=== PATIENT | female | born 1970 | race African-American/Black ===

== ENCOUNTER 2023-06-21 10:28 | Emergency (ER) | payer BC ==
[2023-06-21 10:37] VITALS: RESP 18; TEMP 97; BMI 25.7
[2023-06-21 12:10] LABS: EPI CELLS 3 /uL (0-25.1); HYALINE CASTS 1 /uL (0-3.1); URINE APPEARANCE CLEAR; URINE BACTERIA 3 /uL (0-1359); URINE BILIRUBIN NEGATIVE (NEGATIVE); URINE COLOR YELLOW; URINE GLUCOSE (UA) NEGATIVE (NEGATIVE); URINE KETONE NEGATIVE (NEGATIVE); URINE LEUK ESTERASE NEGATIVE (NEGATIVE); URINE NITRITE NEGATIVE (NEGATIVE); URINE PROTEIN NEGATIVE (NEGATIVE); URINE RBC 64 /uL (0-23.9); URINE UROBILINOGEN 0.2 mg/dL (0.2-1.0); URINE WBC 3 /uL (0-25.8)
[2023-06-21 12:27] LABS: BASO % 0.2 % (0-2.0); HEMATOCRIT 34.9 % (32.4-45.2); LYMPH % 5.7 % (8-40); MCH 31.5 pg (25.7-33.7); MCHC 34.3 g/dl (32.0-36.0); MEAN CELL VOLUME 91.7 fl (80-96); MEAN PLT VOLUME 10.8 fl (7.5-11.1); MONO % 3.3 % (3.8-10.2); NEUT % 90.8 % (42.8-82.8); PLATELET COUNT 184 10^3/uL (134-434); RBC 3.81 M/mm3 (3.60-5.2); RDW 15.1 % (11.6-15.6); WHITE BLOOD COUNT 9.6 K/mm3 (4.0-10.0)
[2023-06-21 12:56] LABS: POTASSIUM 4.7 mmol/L (3.5-5.1)
[2023-06-21 12:58] LABS: CALCIUM 9.2 mg/dL (8.5-10.1)
[2023-06-21 13:00] LABS: ALBUMIN 3.5 g/dl (3.4-5.0); BLOOD UREA NITROGEN 10.4 mg/dL (7-18)
[2023-06-21 13:02] LABS: CREATININE 0.8 mg/dL (0.55-1.3)
[2023-06-21 13:03] LABS: BILIRUBIN,TOTAL 0.3 mg/dL (0.2-1); TOT PROT 8.7 g/dl (6.4-8.2)
[2023-06-21 13:33] VITALS: BP 145/82; PULSE 75
[2023-06-21] MEDS: SODIUM CHLORIDE 0.9% 500 ML INFUS.BAG IV ONE (14:24)
== END 2023-06-21 15:39 | disposition home or self-care (01) ==
LOC: JER 10:28
PROC: 0T9B70Z Drainage of Bladder with Drainage Device, Via Natural or Artificial Opening (ICD-10-PCS; principal; 2023-06-21)
DX: R33.9 Retention of urine, unspecified (principal)
CPT/HCPCS: 36415; 80053; 81003; 85025; 87086; 99284-25

== ENCOUNTER 2023-06-23 14:23 | Emergency (ER) | payer BC ==
[2023-06-23 14:48] VITALS: BP 140/76; PULSE 73; RESP 18; TEMP 98.5; BMI 25.7
[2023-06-23 16:32] LABS: EPI CELLS 5 /uL (0-25.1); HYALINE CASTS 0 /uL (0-3.1); URINE APPEARANCE CLEAR; URINE BACTERIA 89 /uL (0-1359); URINE BILIRUBIN NEGATIVE (NEGATIVE); URINE COLOR YELLOW; URINE GLUCOSE (UA) NEGATIVE (NEGATIVE); URINE KETONE NEGATIVE (NEGATIVE); URINE LEUK ESTERASE 1+ (NEGATIVE); URINE NITRITE NEGATIVE (NEGATIVE); URINE PROTEIN NEGATIVE (NEGATIVE); URINE RBC 20 /uL (0-23.9); URINE UROBILINOGEN 0.2 mg/dL (0.2-1.0); URINE WBC 9 /uL (0-25.8)
[2023-06-23 16:51] LABS: YEAST FEW (NEGATIVE)
== END 2023-06-23 18:20 | disposition home or self-care (01) ==
LOC: JER 14:23
DX: R33.9 Retention of urine, unspecified (principal); T83.511A Infection and inflammatory reaction due to indwelling urethral catheter, initial encounter
CPT/HCPCS: 81003; 87086; 99283-25